=== PATIENT | male | born 1965 | race Two or more races ===

== ENCOUNTER 2016-10-27 22:05 | Inpatient (IN) | payer MEDICAID ==
[~2016-10-27] VITALS: Ht 182.9 cm; Wt 197.0 kg
[2016-10-27 22:45] LABS: Basophils # (auto) 0 uL; Basophils % (auto) 0.3 % (0.0-2.0); Eosinophils # (auto) 0.1 uL; Eosinophils % (auto) 0.9 % (0.0-7.0); Hematocrit 44.7 % (41.0-53.0); Hemoglobin 14.9 g/dL (13.5-17.5); Lymphocytes # (auto) 1.6 uL; Mean Corpuscular Hgb Conc. 33.2 g/dL (32.0-36.0); Mean Corpuscular Volume 84.4 fL (80.0-100.0); Mean Platelet Volume 8.9 fL (7.4-10.4); Monocytes # (auto) 0.6 uL; Monocytes % (auto) 6.5 % (0.0-12.0); Neutrophils # (auto) 7.2 uL; Neutrophils % (auto) 75.3 % (37.0-80.0); Platelet Count (auto) 274 10^3/uL (140-450); Red Cell Distribution Width 15.8 % (11.6-16.0); White Blood Cell 9.6 10^3/uL (4.4-10.8)
[2016-10-27 22:53] LABS: Partial Thromboplastin Time 27.3 sec (22.64-33.71)
[2016-10-27 22:55] LABS: INR 1.22 (0.9-1.15); Prothrombin Time 13.2 sec (9.37-12.3)
[2016-10-27 22:59] LABS: Albumin 3.7 g/dL (3.4-5.0); Anion Gap 10 (5-15); Aspartate Aminotransferase 15 U/L (15-37); BUN/Creatinine Ratio 16.7; Blood Urea Nitrogen 26 mg/dL (7-18); Calcium 8.5 mg/dL (8.5-10.1); Carbon Dioxide 30 mmol/L (21-32); Chloride 98 mmol/L (98-107); GFR African American 60 mL/min; GFR Non-African American 50 mL/min; Glucose 119 mg/dL (74-106); Magnesium 1.9 mg/dL (1.6-2.6); Potassium 4.3 mmol/L (3.5-5.1); Sodium 138 mmol/L (136-145)
[2016-10-27 23:04] LABS: Alkaline Phosphatase 78 U/L (45-117); Bilirubin, Total 0.4 mg/dL (0.2-1.0)
[2016-10-27 23:14] LABS: B-Type Natriuretic Peptide 106.26 pg/mL (0-100); Temperature: 22.4 C (20.0-25.0)
[2016-10-27] MEDS ORDERED: methylPREDNISolone SOD SUCC 125 MG/2 ML VL IV ONE (23:15)
[2016-10-27] MEDS ORDERED: DILTIAZEM HCL 25 MG/5 ML VIAL IV ONE (23:15)
[2016-10-28 00:01] LABS: Allen Test Yes; Base Excess 5.7 mmol/L (-2.0-2.0); Blood COHb 0.6 % (0.5-1.5); Blood MetHb 0.2 % (0.0-1.5); HCO3 31.2 mmol/L (22-26.0); MODE NASAL CANNULA; O2Hb 95.2 % (94.0-97.0); PCO2(T) 47.9 mmHg (35.0-45.0); Sample Type Arterial
[2016-10-28] MEDS ORDERED: MORPHINE SULF INJ 2 MG/ML SYRINGE 1ML IV PRN (07:30)
[2016-10-28] MEDS ORDERED: ONDANSETRON HCL 4 MG/2 ML VIAL IV PRN (07:30)
[2016-10-28] MEDS ORDERED: TEMAZEPAM 15 MG CAP PO PRN (07:30)
[2016-10-28] MEDS ORDERED: NITROGLYCERIN 0.4 MG SL TAB SL PRN ×2 (07:30→07:35)
[2016-10-28] MEDS ORDERED: ACETAMINOPHEN 325 MG TAB PO PRN (07:30)
[2016-10-28] MEDS: SODIUM CHLORIDE 0.9% 1,000 ML IV SCH (08:26)
[2016-10-28 09:43] LABS: Allen Test Yes; Base Excess 4.5 mmol/L (-2.0-2.0); Blood 02Sat 94.5 % (96-100); Blood COHb 0.2 % (0.5-1.5); Blood MetHb 0.1 % (0.0-1.5); HHb 5.5 % (0.0-5.0); MODE NASAL CANNULA; O2Hb 94.2 % (94.0-97.0); PCO2(T) 47.5 mmHg (35.0-45.0); PO2(T) 76.1 mmHg (80.0-100.0); Sample Type Arterial
[2016-10-28] MEDS ORDERED: FUROSEMIDE 40 MG/4 ML VIAL IV ONE ×2 (10:00)
[2016-10-28] MEDS ORDERED: ENOXAPARIN SOD 30 MG/0.3 ML SYRINGE SC SCH (10:00)
[2016-10-28] MEDS ORDERED: AMLO5TAB2 PO (10:04)
[2016-10-28] MEDS ORDERED: CARV25TA55 PO (10:05)
[2016-10-28] MEDS ORDERED: WARF5TAB71 PO (10:06)
[2016-10-28] MEDS: ASCORBIC ACID 500 MG TAB PO SCH ×2 (11:00→21:33)
[2016-10-28] MEDS: MULTIPLE VITAMIN TAB PO SCH (11:00)
[2016-10-28] MEDS: ZINC SULFATE 220 MG CAP PO SCH (11:00)
[2016-10-28] MEDS: FAMOTIDINE 20 MG TAB PO SCH ×2 (11:00→21:33)
[2016-10-28] MEDS: ENOXAPARIN SOD 40 MG/0.4 ML SYRINGE SC SCH ×2 (11:01→21:33)
[2016-10-28] MEDS: FUROSEMIDE 40 MG/4 ML VIAL IV SCH (11:01)
[2016-10-28 11:25] VITALS: BP 107/78
[2016-10-28 16:22] VITALS: BP 148/91
[2016-10-28] MEDS ORDERED: WARFARIN SODIUM 2 MG TAB PO ONE (17:00)
[2016-10-28] MEDS: ENALAPRIL MALEATE 2.5 MG TAB PO SCH (18:45)
[2016-10-28] MEDS: METOPROLOL SUCCINATE XL 50 MG TAB PO SCH (18:46)
[2016-10-28 20:00] VITALS: BP 141/83
[2016-10-28 20:59] VITALS: BP 141/83
[2016-10-29] MEDS: SODIUM CHLORIDE 0.9% 1,000 ML IV SCH (03:36)
[2016-10-29 05:36] VITALS: BP 120/84
[2016-10-29 06:03] LABS: Basophils # (auto) 0 uL; Basophils % (auto) 0.1 % (0.0-2.0); Eosinophils # (auto) 0 uL; Eosinophils % (auto) 0.1 % (0.0-7.0); Hematocrit 42.9 % (41.0-53.0); Lymphocytes # (auto) 1.4 uL; Lymphocytes % (auto) 11.3 % (10.0-50.0); Mean Corpuscular Hemoglobin 27.8 pg (28.0-32.0); Mean Corpuscular Hgb Conc. 32.7 g/dL (32.0-36.0); Monocytes # (auto) 0.9 uL; Monocytes % (auto) 7.5 % (0.0-12.0); Neutrophils # (auto) 10.1 uL; Platelet Count (auto) 251 10^3/uL (140-450); Red Cell Distribution Width 16.4 % (11.6-16.0); White Blood Cell 12.4 10^3/uL (4.4-10.8)
[2016-10-29 06:21] LABS: Partial Thromboplastin Time 30.1 sec (22.64-33.71)
[2016-10-29 06:27] LABS: INR 1.42 (0.9-1.15); Prothrombin Time 15.3 sec (9.37-12.3)
[2016-10-29 06:32] LABS: Albumin 3.3 g/dL (3.4-5.0); BUN/Creatinine Ratio 24.7; Bilirubin, Total 0.3 mg/dL (0.2-1.0); Calcium 8.8 mg/dL (8.5-10.1); Potassium 4.6 mmol/L (3.5-5.1); Total Protein 8.5 g/dL (6.4-8.2)
[2016-10-29 09:00] VITALS: BP 132/87
[2016-10-29] MEDS ORDERED: LISI-646 PO (09:16)
[2016-10-29] MEDS ORDERED: FURO20TA PO (09:16)
[2016-10-29] MEDS ORDERED: DIGO0.2570 PO (09:27)
[2016-10-29] MEDS ORDERED: DIGOXIN 0.25 MG TAB PO ONE (09:30)
[2016-10-29] MEDS: ENOXAPARIN SOD 40 MG/0.4 ML SYRINGE SC SCH ×2 (09:37→21:19)
[2016-10-29] MEDS: FAMOTIDINE 20 MG TAB PO SCH ×2 (09:38→21:19)
[2016-10-29] MEDS: METOPROLOL SUCCINATE XL 50 MG TAB PO SCH (09:38)
[2016-10-29] MEDS: FUROSEMIDE 40 MG/4 ML VIAL IV SCH (09:38)
[2016-10-29] MEDS: ASCORBIC ACID 500 MG TAB PO SCH ×2 (09:39→21:19)
[2016-10-29] MEDS: ZINC SULFATE 220 MG CAP PO SCH (09:39)
[2016-10-29] MEDS: ENALAPRIL MALEATE 2.5 MG TAB PO SCH (09:39)
[2016-10-29] MEDS: MULTIPLE VITAMIN TAB PO SCH (09:39)
[2016-10-29] MEDS ORDERED: DIGOXIN (250MCG/ML) 2 ML AMPULE ONE ×2 (11:39→15:53)
[2016-10-29] MEDS ORDERED: DIGOXIN (250MCG/ML) 2 ML AMPULE IV ONE ×4 (11:45→20:00)
[2016-10-29 13:00] VITALS: BP 102/65
[2016-10-29 14:16] LABS: Urine Bilirubin Negative (Negative); Urine Blood Negative /uL (Negative); Urine Color Yellow (Yellow); Urine Glucose Normal (Normal); Urine Ketone Negative (Negative); Urine Nitrite Negative (Negative); Urine RBC <1 /hpf (0 - 3); Urine Urobilinogen Normal (Negative)
[2016-10-29 17:00] VITALS: BP 104/85
[2016-10-29] MEDS ORDERED: WARFARIN SODIUM 2 MG TAB PO ONE (17:00)
[2016-10-29 20:00] VITALS: BP 133/69
[2016-10-29 22:23] VITALS: BP 133/69
[2016-10-30 00:14] VITALS: BP 133/69
[2016-10-30 05:34] VITALS: BP 130/82
[2016-10-30 05:59] LABS: Partial Thromboplastin Time 29.7 sec (22.64-33.71)
[2016-10-30 06:01] LABS: INR 1.55 (0.9-1.15); Prothrombin Time 16.7 sec (9.37-12.3)
[2016-10-30 09:00] VITALS: BP 100/67
[2016-10-30] MEDS: FUROSEMIDE 40 MG/4 ML VIAL IV SCH (09:49)
[2016-10-30] MEDS: DIGOXIN 0.25 MG TAB PO SCH ×2 (09:49→09:52)
[2016-10-30] MEDS: FAMOTIDINE 20 MG TAB PO SCH (09:49)
[2016-10-30] MEDS: ZINC SULFATE 220 MG CAP PO SCH (09:50)
[2016-10-30] MEDS: MULTIPLE VITAMIN TAB PO SCH (09:50)
[2016-10-30] MEDS: METOPROLOL SUCCINATE XL 50 MG TAB PO SCH (09:51)
[2016-10-30] MEDS: ENALAPRIL MALEATE 2.5 MG TAB PO SCH (09:51)
[2016-10-30] MEDS: ASCORBIC ACID 500 MG TAB PO SCH (09:52)
[2016-10-30] MEDS: ENOXAPARIN SOD 40 MG/0.4 ML SYRINGE SC SCH (11:03)
[2016-10-30 12:31] VITALS: BP 100/67
[2016-10-30 12:40] VITALS: BP 100/67
[2016-10-30] MEDS ORDERED: WARFARIN SODIUM 2.5 MG TAB PO ONE (17:00)
== END 2016-10-30 13:10 | disposition home or self-care (01) | DRG 194 ==
LOC: ER 22:09 → TELE 22:10 → TELE-CENTR 10-28 09:01
PROVIDERS: ADMIT Emergency Medicine; ATTEND Internal Medicine
PROC: 5A09357 Assistance with Respiratory Ventilation, Less than 24 Consecutive Hours, Continuous Positive Airway Pressure (ICD-10-PCS; principal; 2016-10-29)
DX: I11.0 Hypertensive heart disease with heart failure (principal); D68.59 Other primary thrombophilia; I42.0 Dilated cardiomyopathy; I48.92 Unspecified atrial flutter; J44.1 Chronic obstructive pulmonary disease with (acute) exacerbation; Z68.43 Body mass index [BMI] 50.0-59.9, adult; E66.01 Morbid (severe) obesity due to excess calories; I50.43 Acute on chronic combined systolic (congestive) and diastolic (congestive) heart failure; I48.2 Chronic atrial fibrillation; F15.90 Other stimulant use, unspecified, uncomplicated; Z87.891 Personal history of nicotine dependence; Z88.5 Allergy status to narcotic agent; Z79.01 Long term (current) use of anticoagulants; Z88.0 Allergy status to penicillin
CPT/HCPCS: 36415; 36600; 71010; 80053; 80307; 81001; 82805; 83735; 83880; 84443; 84484; 85025; 85610; 85730; 93005; 93306; 93970; 94660; 96361; 96374; 96375